=== PATIENT | female | born 1980 | race African-American/Black ===

== ENCOUNTER 2020-11-16 11:00 | Emergency (ER) | payer MEDICAID ==
[~2020-11-16] VITALS: Ht 165.1 cm; Wt 76.7 kg
[2020-11-16 11:05] VITALS: BP 108/81
--- NOTE | 2020-11-16 11:09 | NUR ---
Pt ambulated to ER bed 4 with a steady gait.
--- NOTE | 2020-11-16 11:13 | NUR ---
RN at pt bedside for evaluation.
--- NOTE | 2020-11-16 11:16 | NUR ---
DR. RODRIGUEZ BEDSIDE EVALUATING PT
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
--- NOTE | 2020-11-16 11:26 | NUR ---
PT TAKEN TO XRAY VIA W/C
[2020-11-16 12:12] VITALS: BP 108/81
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
--- NOTE | 2020-11-16 12:14 | NUR ---
Patient discharged with v/s stable. Written and verbal after care instructions given and explained. Patient verbalized understanding. Ambulatory with steady gait. All questions addressed prior to discharge. Advised to follow up with PMD.
== END 2020-11-16 12:14 | disposition home or self-care (01) ==
LOC: MED 11:00
DX: S63.255A Unspecified dislocation of left ring finger, initial encounter (principal); X58.XXXA Exposure to other specified factors, initial encounter; Y93.9 Activity, unspecified; Y92.89 Other specified places as the place of occurrence of the external cause; Y99.8 Other external cause status
CPT/HCPCS: 73140; 99283